=== PATIENT | female | born 1995 | race Native Hawaiian/Other Pacific Islander ===

== ENCOUNTER 2018-08-28 15:00 | Emergency (ER) | payer OTHER ==
[2018-08-28 15:10] VITALS: BP 126/80; PULSE 82; RESP 16; TEMP 98.2; O2SAT 100
[2018-08-28] MEDS ORDERED: Lidocaine 1% (10 ml) Inj INFIL STA (16:40)
[2018-08-28] MEDS ORDERED: Lidocaine 1% Inj (20ml) ONE (16:42)
[2018-08-28] MEDS ORDERED: Tdap Vaccine 0.5 ml Vial (10-64 yrs) IM ONE ×2 (17:13→17:19)
--- NOTE | 2018-08-28 17:16 | ED PDOC ---
HPI: Skin/Bite Injury Time Seen by Provider: 08/28/18 15:22 Chief Complaint (Nursing): Abnormal Skin Integrity Chief Complaint (Provider): Eyebrow laceration History Per: Patient History/Exam Limitations: no limitations Onset/Duration Of Symptoms: Days (1x) Current Symptoms Are (Timing): Still Present Location Of Injury: Anterior: Head (right eyebrow) Severity: Moderate Additional Complaint(s): 22 year old female with no past medical history presents to the ED with complaints of a laceration she sustained last night. Patient states she was out last night, tripped and fell, and hit her head. Patient sustained a laceration to her right eyebrow. Patient went to [facility] today for a laceration repair, but was not seen by the PA-C because they would not do a laceration repair. Patient denies having headaches, nausea, vomiting. She says she feels fine. Unknown last tetanus. PMD: None provided Past Medical History Reviewed: Historical Data, Nursing Documentation, Vital Signs Vital Signs: Last Vital Signs Temp 98.2 F 08/28/18 15:08 Pulse 82 08/28/18 15:08 Resp 16 08/28/18 15:08 BP 126/80 08/28/18 15:08 Pulse Ox 100 08/28/18 15:08 - Medical History PMH: No Chronic Diseases - Surgical History Surgical History: No Surg Hx - Family History Family History: States: No Known Family Hx - Living Arrangements Living Arrangements: With Friends/Others - Social History Alcohol: Occasional Drugs: Denies - Home Medications Home Medications: Ambulatory Orders Medication Instructions Recorded Cephalexin [Keflex] 500 mg PO BID #14 capsule 08/28/18 - Allergies Allergies/Adverse Reactions: Allergies Allergy/AdvReac Type Severity Reaction Status Date / Time No Known Allergies Allergy Verified 08/28/18 15:11 Review of Systems ROS Statement: Except As Marked, All Systems Reviewed And Found Negative Skin: Positive for: Other (right eyebrow laceration) Physical Exam - Reviewed Nursing Documentation Reviewed: Yes Vital Signs Reviewed: Yes - Physical Exam Appears: Positive for: Well, Non-toxic, No Acute Distress Head Exam: Positive for: NORMOCEPHALIC. Negative for: ATRAUMATIC (right eyebrow: 2.5 cm linear laceration. (-) active bleeding.) Skin: Positive for: Normal Color Neurologic/Psych: Positive for: Alert, Oriented (3x) - ECG O2 Sat by Pulse Oximetry: 100 (RA) Pulse Ox Interpretation: Normal Medical Decision Making Medical Decision Makin:22 Initial impression: 22 year old female with a laceration to her right eyebrow Initial plan: * laceration repair * tetanus 0.5 ml IM once ----- Scribe Attestation: Documented by Tatum Cano, acting as a scribe for Sarah Lee PA-C. Provider Scribe Attestation: All medical record entries made by the Scribe were at my direction and personally dictated by me. I have reviewed the chart and agree that the record accurately reflects my personal performance of the history, physical exam, medical decision making, and the department course for this patient. I have also personally directed, reviewed, and agree with the discharge instructions and disposition. Disposition - Clinical Impression Clinical Impression: Eyebrow laceration, Tetanus toxoid vaccination administered at current visit - Disposition Referrals: Katie Cohen MD [Medical Doctor] - Disposition: Routine/Home Disposition Time: 17:15 Condition: GOOD Prescriptions: Cephalexin [Keflex] 500 mg PO BID #14 capsule Instructions: Laceration Repair Forms: [facility] (Sen[place]alese) Procedure: Wound Repair - Time Performed Time Performed: 16:40 - Time Out Time Out: Side verified, Site verified, Patient ID confirmed - Procedure Procedure: Wound Repair: laceration repair - Consent Obtained Consent obtained: Verbal - Performed by Performed by: Mid-level Provider - Indications Indication(s):: Laceration - Location Location:: Right, Eyebrow Shape:: Linear Dimensions Length cm: 2.5 Depth:: Epidermis - Anesthetic Technique Local/Regional Anesthetic:: Lidocaine 1% - Complexity Complexity:: Simple (one layer) - Wound repair method Sutures:: # (3), Size (6-0), Type (vicryl) - Muscle repiar layer closed with Muscle repair layer closed with:: Abx ointment applied, Tetanus ordered - Patient tolerated procedure Patient Tolerated Procedure:: Well
== END 2018-08-28 17:23 | disposition home or self-care (01) ==
LOC: H.ER 15:00
DX: S01.111A Laceration without foreign body of right eyelid and periocular area, initial encounter (principal); W01.0XXA Fall on same level from slipping, tripping and stumbling without subsequent striking against object, initial encounter; Y92.89 Other specified places as the place of occurrence of the external cause